=== PATIENT | female | born 1970 | race Caucasian/White ===

== ENCOUNTER 2017-02-08 05:52 | Emergency (ER) | payer MEDICARE, BC ==
[2017-02-08] MEDS ORDERED: LORazepam 2 MG/ML Syringe IVPUSH ONE ×2 (06:03→06:28)
[2017-02-08] MEDS ORDERED: LORazepam 2 MG/ML Syringe ONE (06:05)
--- NOTE | 2017-02-08 06:12 | EDM.PDOC ---
{null, <Jamie Hartman - Last Filed: 02/08/17 06:40> ED HPI GENERAL MEDICAL PROBLEM - General Stated Complaint: COMING IN OWN VEHICLE, POSSIBLE STROKE? Time Seen by Provider: 02/08/17 06:08 Source of Information: Reports: Patient History Limitations: Reports: No Limitations - History of Present Illness INITIAL COMMENTS - FREE TEXT/NARRATIVE: pt arrived screaming hysterically alleging having a stroke because left side. also been having abd' pain past 2 months and been for multiple eval' had neg CAT few weeks ago. but Pt demanded a repeat CAT despite warning over excessive radiation. Pt got angry over my excessive questioning and requesting her to try to calm down so we can obtain a accurate HPI, also I informed her that since she is talking and moving a stroke is unlikely at this point Pt got more angry and demanded another doctor. Apparently I contradicted her claim. states wants something for pain now and continue to scream. also states abd' pain feels like stabbing pain and tonight gave herself enema and not better. states been told she has a cyste and waiting consult. Lower Abdominal Pain Score (Numeric/FACES): 10 - Related Data Allergies Allergy/AdvReac Type Severity Reaction Status Date / Time amoxicillin [Amoxicillin] Allergy Itching Verified 02/08/17 06:28 ampicillin Allergy Itching Verified 02/08/17 06:28 cephalexin [Cephalexin] Allergy Rash Verified 02/08/17 06:28 morphine Allergy Nausea Verified 02/08/17 06:28 morphine sulfate Allergy Itching Verified 02/08/17 06:28 [From Raina] Penicillins Allergy Itching Verified 02/08/17 06:28 Home Meds: Home Meds FLUoxetine HCl [Fluoxetine HCl] 40 mg PO DAILY 07/06/15 [History] buPROPion HCl [Bupropion Xl] 150 mg PO DAILY 07/06/15 [History] oxyCODONE HCl [Oxycontin] 80 mg PO BID 07/06/15 [History] Docusate Sodium/Sennosides [Senna Plus] 1 tab PO ASDIRECTED PRN 02/08/17 [ History] Past Medical History HEENT History: Reports: None Cardiovascular History: Reports: None Respiratory History: Reports: None Gastrointestinal History: Reports: None Other Genitourinary History: has a bladder sling, vaginal mesh Neurological History: Reports: None Psychiatric History: Reports: None Endocrine/Metabolic History: Reports: None Hematologic History: Reports: None Immunologic History: Reports: None Oncologic (Cancer) History: Reports: None Dermatologic History: Reports: None - Past Surgical History HEENT Surgical History: Reports: None Cardiovascular Surgical History: Reports: None Endocrine Surgical History: Reports: None Neurological Surgical History: Reports: None Social & Family History - Tobacco Use Smoking Status *Q: Light Tobacco Smoker Years of Tobacco use: 20 Packs/Tins Daily: 0.5 Second Hand Smoke Exposure: No - Recreational Drug Use Recreational Drug Use: No ED ROS GENERAL - Review of Systems Review Of Systems: ROS reveals no pertinent complaints other than HPI. ED EXAM, GENERAL - Physical Exam Exam: See Below Exam Limited By: No Limitations General Appearance: Alert, WD/WN, Anxious, Other (screaming yelling) Ears: Hearing Grossly Normal Throat/Mouth: Normal Voice, No Airway Compromise Head: Atraumatic Neck: Non-Tender, Full Range of Motion Respiratory/Chest: No Respiratory Distress Cardiovascular: Regular Rate, Rhythm GI/Abdominal: Tender, Other (periumb). No: Distended, Guarding, Rigid, Rebound Neurological: Alert, Oriented, Normal Cognition, Normal Gait, No Motor/Sensory Deficits Psychiatric: Tearful Skin Exam: Warm, Dry Lymphatic: No Adenopathy Course - Vital Signs Last Recorded V/S: Last Vital Signs Temp 36.2 C 02/08/17 06:10 Pulse 100 02/08/17 06:10 Resp 20 02/08/17 06:10 BP 132/98 H 02/08/17 06:10 Pulse Ox 100 02/08/17 06:10 - Orders/Labs/Meds Orders: Active Orders 24 hr Category Date Time Status Enema [RC] ASDIRECTED Care 02/08/17 07:50 Active Labs: Laboratory Tests 02/08/17 02/08/17 02/08/17 Range/Units 06:05 06:05 07:15 WBC 6.7 (5.0-10.0) 10^3/uL RBC 3.63 L (4.2-5.4) 10^6/uL Hgb 11.0 L (12.0-16.0) g/dL Hct 33.6 L (37.0-47.0) % MCV 92.6 (80-100) fL MCH 30.3 (27.0-34.0) pg MCHC 32.7 L (33.0-35.0) g/dL Plt Count 223 (150-450) 10^3/uL Neut % (Auto) 51.0 (42.2-75.2) % Lymph % (Auto) 36.2 (20.5-50.1) % Jerome % (Auto) 8.5 H (2-8) % Eos % (Auto) 3.9 H (1.0-3.0) % Baso % (Auto) 0.4 (0.0-1.0) % Sodium 137 (135-145) mmol/L Potassium 3.5 L (3.6-5.0) mmol/L Chloride 101 (101-111) mmol/L Carbon Dioxide 26.0 (21.0-31.0) mmol/L Anion Gap 13.5 BUN 7 (7-18) mg/dL Creatinine 1.0 (0.6-1.3) mg/dL Est Cr Clr Drug Dosing 58.77 mL/min Estimated GFR (MDRD) 60 BUN/Creatinine Ratio 7.00 Glucose 88 (74-105) mg/dL Calcium 9.2 (8.4-10.2) mg/dl Total Bilirubin 0.5 (0.2-1.0) mg/dL AST 34 (10-42) IU/L ALT 20 (10-60) IU/L Alkaline Phosphatase 47 (42-121) IU/L Total Protein 6.4 L (6.7-8.2) g/dl Albumin 4.3 (3.2-5.5) g/dl Globulin 2.1 Albumin/Globulin Ratio 2.05 Urine Color (YELLOW) Urine Appearance (CLEAR) Urine pH (5.0-9.0) Ur Specific [place] (1.005-1.030) Urine Protein (NEGATIVE) Urine Glucose (UA) (NEGATIVE) Urine Ketones (NEGATIVE) Urine Occult Blood (NEGATIVE) Urine Nitrite (NEGATIVE) Urine Bilirubin (NEGATIVE) Urine Urobilinogen (0.2-1.0) mg/dL Ur Leukocyte Esterase (NEGATIVE) Urine Opiates Screen Negative (NEGATIVE) Ur Oxycodone Screen Positive H (NEGATIVE) Urine Methadone Screen Negative (NEGATIVE) Ur Barbiturates Screen Negative (NEGATIVE) U Tricyclic Antidepress Negative (NEGATIVE) Ur Phencyclidine Scrn Negative (NEGATIVE) Ur Amphetamine Screen Negative (NEGATIVE) U Methamphetamines Scrn Negative (NEGATIVE) Urine MDMA Screen Negative (NEGATIVE) U Benzodiazepines Scrn Negative (NEGATIVE) Urine Cocaine Screen Negative (NEGATIVE) U Marijuana (THC) Screen Negative (NEGATIVE) 02/08/17 Range/Units 07:15 WBC (5.0-10.0) 10^3/uL RBC (4.2-5.4) 10^6/uL Hgb (12.0-16.0) g/dL Hct (37.0-47.0) % MCV (80-100) fL MCH (27.0-34.0) pg MCHC (33.0-35.0) g/dL Plt Count (150-450) 10^3/uL Neut % (Auto) (42.2-75.2) % Lymph % (Auto) (20.5-50.1) % Jerome % (Auto) (2-8) % Eos % (Auto) (1.0-3.0) % Baso % (Auto) (0.0-1.0) % Sodium (135-145) mmol/L Potassium (3.6-5.0) mmol/L Chloride (101-111) mmol/L Carbon Dioxide (21.0-31.0) mmol/L Anion Gap BUN (7-18) mg/dL Creatinine (0.6-1.3) mg/dL Est Cr Clr Drug Dosing mL/min Estimated GFR (MDRD) BUN/Creatinine Ratio Glucose (74-105) mg/dL Calcium (8.4-10.2) mg/dl Total Bilirubin (0.2-1.0) mg/dL AST (10-42) IU/L ALT (10-60) IU/L Alkaline Phosphatase (42-121) IU/L Total Protein (6.7-8.2) g/dl Albumin (3.2-5.5) g/dl Globulin Albumin/Globulin Ratio Urine Color Yellow (YELLOW) Urine Appearance Clear (CLEAR) Urine pH 7.5 (5.0-9.0) Ur Specific Anderson 1.010 (1.005-1.030) Urine Protein Negative (NEGATIVE) Urine Glucose (UA) Negative (NEGATIVE) Urine Ketones Negative (NEGATIVE) Urine Occult Blood Moderate H (NEGATIVE) Urine Nitrite Negative (NEGATIVE) Urine Bilirubin Negative (NEGATIVE) Urine Urobilinogen 0.2 (0.2-1.0) mg/dL Ur Leukocyte Esterase Negative (NEGATIVE) Urine Opiates Screen (NEGATIVE) Ur Oxycodone Screen (NEGATIVE) Urine Methadone Screen (NEGATIVE) Ur Barbiturates Screen (NEGATIVE) U Tricyclic Antidepress (NEGATIVE) Ur Phencyclidine Scrn (NEGATIVE) Ur Amphetamine Screen (NEGATIVE) U Methamphetamines Scrn (NEGATIVE) Urine MDMA Screen (NEGATIVE) U Benzodiazepines Scrn (NEGATIVE) Urine Cocaine Screen (NEGATIVE) U Marijuana (THC) Screen (NEGATIVE) Meds: Medications Discontinued Medications Generic Name Dose Route Start Last Admin Trade Name Freq PRN Reason Stop Dose Admin Hydromorphone HCl 1 mg 02/08/17 06:16 02/08/17 06:25 Dilaudid IVPUSH 02/08/17 06:17 1 mg ONETIME ONE Administration Lorazepam 1 mg 02/08/17 06:03 02/08/17 06:11 Ativan IVPUSH 02/08/17 06:04 1 mg ONETIME ONE Administration Lorazepam Confirm 02/08/17 06:05 02/08/17 06:38 Ativan Administered 02/08/17 06:06 Not Given Dose 2 mg .ROUTE .STK-MED ONE Lorazepam 1 mg 02/08/17 06:28 02/08/17 06:15 Ativan IVPUSH 02/08/17 06:29 1 mg ONETIME ONE Administration Ondansetron HCl 4 mg 02/08/17 06:16 02/08/17 06:21 Zofran IV 02/08/17 06:17 4 mg ONETIME ONE Administration Departure - Departure Disposition: Home, Self-Care 01 Clinical Impression: Constipation Qualifiers: Constipation type: unspecified constipation type Qualified Code(s): K59.00 - Constipation, unspecified - Discharge Information Instructions: Constipation, Adult, [id number] Care Plan Goals: The patient was advised of the examination, head CT, abdominal CT and lab results during the visit. The patient was encouraged to continue with her current medications as prescribed. The patient should follow-up with her primary care facility or her specialist for continued evaluation and further management. If the patient has any additional symptoms or concerns, the patient should visit her primary care facility or return to the emergency department. - My Orders Last 24 Hours: My Active Orders 02/08/17 07:50 Enema [RC] ASDIRECTED - Assessment/Plan Last 24 Hours: My Active Orders 02/08/17 07:50 Enema [RC] ASDIRECTED <Alvino Connolly - Last Filed: 02/08/17 11:08> Course - Re-Assessments/Exams Free Text/Narrative Re-Assessment/Exam: 02/08/17 07:28 Patient care was taken over at shift change. Head and Abdominal CT results were reviewed. A urine sample was collected and sent to lab. Departure - Departure Time of Disposition: 11:05 Condition: fair - My Orders Last 24 Hours: My Active Orders 02/08/17 07:50 Enema [RC] ASDIRECTED - Assessment/Plan Last 24 Hours: My Active Orders 02/08/17 07:50 Enema [RC] ASDIRECTED }
[2017-02-08] MEDS ORDERED: HYDROmorphone 1 MG/ML Syringe IVPUSH ONE (06:16)
[2017-02-08] MEDS ORDERED: Ondansetron 4 MG/2 ML SDV IV ONE (06:16)
--- NOTE | 2017-02-08 09:26 | CT ---
{null, Addendum report: (08 Feb 2017, 0930 hours) CT exam 08 Feb 2017 (0630 hours) reviewed. No evidence of mechanical large or small bowel obstructi on. No pelvic or abdominal mass lesion. No signs of mesenteric or retroperitoneal lymphadenopathy. N o ascites or free intraperitoneal air. Surgically absent uterus. Contrast presumably from previous CT exam 23 December 2016 fills normal-appearing appendix RLQ. }
[2017-02-08 11:26] VITALS: BP 128/93
== END 2017-02-08 11:27 | disposition home or self-care (01) ==
LOC: DL.ED 05:52 → DL.MS 08:10 → DL.ED 11:27
DX: K59.00 Constipation, unspecified (principal); F41.9 Anxiety disorder, unspecified; F17.210 Nicotine dependence, cigarettes, uncomplicated; Z86.73 Personal history of transient ischemic attack (TIA), and cerebral infarction without residual deficits; Z88.1 Allergy status to other antibiotic agents; Z88.0 Allergy status to penicillin; Z79.899 Other long term (current) drug therapy; Z88.5 Allergy status to narcotic agent
CPT/HCPCS: 36415; 70450; 74176; 80053; 80305; 81003; 85025; 96374; 96375; 99284; 99285; J1170; J2060; J2405

== ENCOUNTER 2020-02-10 03:11 | Emergency (ER) | payer MEDICARE, BC ==
[2020-02-10 03:17] VITALS: BP 155/88; PULSE 72
--- NOTE | 2020-02-10 03:37 | EDM.PDOC ---
ED HPI GENERAL MEDICAL PROBLEM - General Chief Complaint: Chest Pain Stated Complaint: CHEST PAIN Time Seen by Provider: 02/10/20 03:33 Source of Information: Reports: Patient History Limitations: Reports: No Limitations - History of Present Illness INITIAL COMMENTS - FREE TEXT/NARRATIVE: onset left anterior sharp pain on-off since Wednesday. was doing laundry at the time then again tues while watching TV, then tonight while asleep. denies trauma , denies prior h/o. denies URI Sx. Left Chest Pain Score (Numeric/FACES): 2 - Related Data Allergies Allergy/AdvReac Type Severity Reaction Status Date / Time amoxicillin [Amoxicillin] Allergy Itching Verified 02/08/17 06:28 ampicillin Allergy Itching Verified 02/08/17 06:28 cephalexin [Cephalexin] Allergy Rash Verified 02/08/17 06:28 morphine Allergy Nausea Verified 02/08/17 06:28 morphine sulfate Allergy Itching Verified 02/08/17 06:28 [From Raina] Penicillins Allergy Itching Verified 02/08/17 06:28 Home Meds: Home Meds FLUoxetine HCl [Fluoxetine HCl] 40 mg PO DAILY 07/06/15 [History] oxyCODONE HCl [Oxycontin] 80 mg PO BID 07/06/15 [History] Docusate Sodium/Sennosides [Senna Plus] 1 tab PO ASDIRECTED PRN 02/08/17 [ History] Gabapentin [Neurontin] 300 mg PO TID 07/06/18 [History] Past Medical History HEENT History: Reports: None Cardiovascular History: Reports: None Respiratory History: Reports: None Gastrointestinal History: Reports: Chronic Constipation Genitourinary History: Reports: Urinary Incontinence Other Genitourinary History: has a bladder sling, vaginal mesh COUNTER ATTENDANT History: Reports: Polycystic Ovaries Musculoskeletal History: Reports: Back Pain, Chronic Neurological History: Reports: None Other Neuro History: pt. states she has been diagnosed with paranoid delusions Psychiatric History: Reports: Anxiety, Depression, Panic Attack, Other (See Below) Other Psychiatric History: eating disorder Endocrine/Metabolic History: Reports: None Hematologic History: Reports: None Immunologic History: Reports: None Oncologic (Cancer) History: Reports: None Dermatologic History: Reports: None - Infectious Disease History Infectious Disease History: Reports: Chicken Pox - Past Surgical History HEENT Surgical History: Reports: None Cardiovascular Surgical History: Reports: None GI Surgical History: Reports: Cholecystectomy, Lysis of Adhesions, Polypectomy, Other (See Below) Other GI Surgeries/Procedures: rectocele 04/2006 Female Surgical History: Reports: Hysterectomy, LEEP, Oophorectomy Endocrine Surgical History: Reports: None Social & Family History - Family History Family Medical History: Unobtainable - Tobacco Use Smoking Status *Q: Current Every Day Smoker Years of Tobacco use: 30 Packs/Tins Daily: 1 Second Hand Smoke Exposure: Yes - Caffeine Use Caffeine Use: Reports: Soda Caffeine Use Comment: states drinks 6-10 cans of Diet Mt Dew daily - Recreational Drug Use Recreational Drug Use: No ED ROS GENERAL - Review of Systems Review Of Systems: Comprehensive ROS is negative, except as noted in HPI. ED EXAM, GENERAL - Physical Exam Exam: See Below Exam Limited By: No Limitations General Appearance: Alert, WD/WN, Mild Distress, Other (UPSET) Ears: Hearing Grossly Normal Throat/Mouth: Normal Voice, No Airway Compromise Head: Atraumatic Neck: Non-Tender, Full Range of Motion Respiratory/Chest: No Respiratory Distress Cardiovascular: Regular Rate, Rhythm GI/Abdominal: Soft, Non-Tender Neurological: Alert, Oriented, Normal Cognition, Normal Gait, No Motor/Sensory Deficits Psychiatric: Flat Affect Skin Exam: Warm, Dry, Normal Color Lymphatic: No Adenopathy Course - Vital Signs Last Recorded V/S: Last Vital Signs Temp 36.6 C 02/10/20 03:13 Pulse 72 02/10/20 03:13 Resp 18 02/10/20 03:13 BP 155/88 H 02/10/20 03:13 Pulse Ox 100 02/10/20 03:13 - Orders/Labs/Meds Orders: Active Orders 24 hr Category Date Time Status EKG Documentation Completion [RC] STAT Care 02/10/20 03:21 Active LACTIC ACID [CHEM] Stat Lab 02/10/20 03:56 Received Labs: Laboratory Tests 02/10/20 02/10/20 02/10/20 Range/Units 03:26 03:26 03:26 WBC 4.5 L (5.0-10.0) 10^3/uL RBC 3.87 L (4.2-5.4) 10^6/uL Hgb 11.9 L (12.0-16.0) g/dL Hct 35.9 L (37.0-47.0) % MCV 92.8 (80-100) fL MCH 30.7 (27.0-34.0) pg MCHC 33.1 (33.0-35.0) g/dL Plt Count 182 (150-450) 10^3/uL Neut % (Auto) 51.1 (42.2-75.2) % Lymph % (Auto) 39.7 (20.5-50.1) % [place] % (Auto) 6.7 (2-8) % Eos % (Auto) 1.8 (1.0-3.0) % Baso % (Auto) 0.7 (0.0-1.0) % D-Dimer, Quantitative < 100 (0-400) ng/mL Sodium 137 (136-145) mmol/L Potassium 3.6 (3.5-5.1) mmol/L Chloride 100 (98-107) mmol/L Carbon Dioxide 29 (21-32) mmol/L Anion Gap 11.6 (7-13) mEq/L BUN 13 (7-18) mg/dL Creatinine 1.24 H (0.55-1.02) mg/dL Est Cr Clr Drug Dosing 43.88 mL/min Estimated GFR (MDRD) 46 BUN/Creatinine Ratio 10.5 (No establ ref range) Glucose 111 H (74-99) mg/dL Calcium 8.7 (8.5-10.1) mg/dL Total Bilirubin 0.9 (0.2-1.0) mg/dL AST 20 (15-37) U/L ALT 20 (14-59) U/L Alkaline Phosphatase 59 (46-116) U/L Troponin I < 0.017 (0.000-0.056) ng/mL Total Protein 6.2 L (6.4-8.2) g/dL Albumin 3.8 (3.4-5.0) g/dL Globulin 2.4 Albumin/Globulin Ratio 1.6 - Re-Assessments/Exams Free Text/Narrative Re-Assessment/Exam: 02/10/20 04:33 results discussed with pt who is aware of her low blood protein. Departure - Departure Time of Disposition: 04:34 Disposition: Home, Self-Care 01 Condition: Good Clinical Impression: Anterior chest wall pain Instructions: Chest Wall Pain, [id number] Forms: ED Department Discharge Additional Instructions: 1) rest 2) see family doctor for STRESS TEST, ECHOCARDIOGRAM, HOLTER MONITOR 3) recheck if there is any change or concern 4) try tylenol or motrin as needed for discomfort Sepsis Event Note - Evaluation Sepsis Screening Result: No Definite Risk - Focused Exam Vital Signs: Vital Signs Temp Pulse Resp BP Pulse Ox 02/10/20 03:13 36.6 C 72 18 155/88 H 100 Date Exam was Performed: 02/10/20 Time Exam was Performed: 04:33 - My Orders Last 24 Hours: My Active Orders 02/10/20 03:21 EKG Documentation Completion [RC] STAT 02/10/20 03:56 LACTIC ACID [CHEM] Stat - Assessment/Plan Last 24 Hours: My Active Orders 02/10/20 03:21 EKG Documentation Completion [RC] STAT 02/10/20 03:56 LACTIC ACID [CHEM] Stat
[2020-02-10 04:07] LABS: ANION GAP 11.6 mEq/L (7-13); CHLORIDE,CL 100 mmol/L (98-107); SODIUM,NA 137 mmol/L (136-145)
== END 2020-02-10 04:44 | disposition home or self-care (01) ==
LOC: DL.ED 03:11
DX: R07.89 Other chest pain (principal); F41.9 Anxiety disorder, unspecified; F32.9 Major depressive disorder, single episode, unspecified; F17.210 Nicotine dependence, cigarettes, uncomplicated; Z88.0 Allergy status to penicillin; Z88.1 Allergy status to other antibiotic agents; Z88.5 Allergy status to narcotic agent; Z79.899 Other long term (current) drug therapy
CPT/HCPCS: 36415; 80053; 83605; 84484; 85025; 85379; 93005; 99284; 99285-25

== ENCOUNTER 2023-12-26 18:00 | Emergency (ER) | payer MEDICARE, BC ==
[2023-12-26 18:29] VITALS: BP 145/91; PULSE 106
[2023-12-26] MEDS: Sodium Chloride 0.9% 10 ML Syringe FLUSH PRN (18:51)
[2023-12-26] MEDS: Iopamidol 612 MG/ML 100 ML Bottle IVPUSH ONE (18:57)
[2023-12-26 19:01] LABS: BASOPHILS PERCENT AUTO 0.4 % (0.0-1.0); EOSINOPHILS PERCENT AUTO 1.2 % (1.0-3.0); HEMATOCRIT 36.3 % (37.0-47.0); LYMPHOCYTES PERCENT AUTO 29.6 % (20.5-50.1); MEAN CORPUSCULAR HEMOGLOBIN 31.1 pg (27.0-34.0); MEAN CORPUSCULAR HGB CONC 33.1 g/dL (33.0-35.0); MONOCYTES PERCENT AUTO 7.1 % (2-8); NEUTROPHILS PERCENT AUTO 61.7 % (42.2-75.2); PLATELET COUNT,PLT 250 10^3/uL (150-450); RED BLOOD CELL COUNT 3.86 10^6/uL (4.2-5.4); WHITE BLOOD CELL COUNT,WBC 7.7 10^3/uL (5.0-10.0)
[2023-12-26 19:05] LABS: APPEARANCE,URINE CLEAR (CLEAR); BILIRUBIN,URINE NEGATIVE (NEGATIVE); COLOR,URINE YELLOW (YELLOW); GLUCOSE,URINE NEGATIVE (NEGATIVE); KETONES,URINE NEGATIVE (NEGATIVE); LEUKOCYTE ESTERASE,URINE NEGATIVE (NEGATIVE); NITRITE,URINE NEGATIVE (NEGATIVE); OCCULT BLOOD,URINE TRACE-INTACT (NEGATIVE); PH,URINE 6.5 (5.0-9.0); PROTEIN,URINE NEGATIVE (NEGATIVE); UROBILINOGEN,URINE 0.2 mg/dL (0.2-1.0)
[2023-12-26 19:06] LABS: A/G RATIO 1.6; ALBUMIN 4.3 g/dL (3.4-5.0); ANION GAP 11.6 mEq/L (7-13); BILIRUBIN TOTAL 0.6 mg/dL (0.2-1.0); CALCIUM 9.2 mg/dL (8.5-10.1); EST CRCL DRUG DOSING (CG) 52.05 mL/min; MAGNESIUM 1.8 mg/dL (1.8-2.4); POTASSIUM,K 3.6 mmol/L (3.5-5.1)
[2023-12-26 19:19] LABS: BACTERIA,URINE RARE /HPF (0-FEW/HPF); EPITHELIAL CELLS,URINE RARE /HPF (NOT SEEN); RBC,URINE 0-5 /HPF (0-5); WBC,URINE NOT SEEN /HPF (0-5/HPF)
== END 2023-12-26 20:59 | disposition home or self-care (01) ==
LOC: DL.ED 18:00
DX: K59.09 Other constipation (principal); T40.605A Adverse effect of unspecified narcotics, initial encounter; J44.9 Chronic obstructive pulmonary disease, unspecified; Z86.16 Personal history of COVID-19; Z79.899 Other long term (current) drug therapy; Z88.0 Allergy status to penicillin; Z88.1 Allergy status to other antibiotic agents; Z88.5 Allergy status to narcotic agent
CPT/HCPCS: 36415; 74177; 80053; 81001; 83690; 83735; 85025; 93010; 99284; Q9967; J3490

== ENCOUNTER 2024-01-14 17:14 | Observation (INO) | payer MEDICARE, BC ==
[2024-01-14] MEDS ORDERED: Metoclopramide 10 MG/2 ML SDV IVPUSH PRN (17:56)
[2024-01-14] MEDS: Dexamethasone 4 MG/ML SDV IVPUSH ONE (18:45)
[2024-01-14] MEDS: Lactated Ringers 1,000 ML IV SCH (18:45)
[2024-01-14] MEDS: metroNIDAZOLE/Normal Saline 500 MG in Premix Bag 1 BAG IV SCH (18:46)
[2024-01-14 18:52] LABS: BASOPHILS PERCENT AUTO 0.3 % (0.0-1.0); EOSINOPHILS PERCENT AUTO 2.3 % (1.0-3.0); HEMATOCRIT 37.4 % (37.0-47.0); HEMOGLOBIN 12.3 g/dL (12.0-16.0); LYMPHOCYTES PERCENT AUTO 40.8 % (20.5-50.1); MEAN CORPUSCULAR HGB CONC 32.9 g/dL (33.0-35.0); MEAN CORPUSCULAR VOLUME 94.2 fL (80-100); NEUTROPHILS PERCENT AUTO 49.6 % (42.2-75.2); PLATELET COUNT,PLT 297 10^3/uL (150-450); RED BLOOD CELL COUNT 3.97 10^6/uL (4.2-5.4); WHITE BLOOD CELL COUNT,WBC 6.2 10^3/uL (5.0-10.0)
[2024-01-14] MEDS: Glycerin Adult 2 GM Supp RECTAL SCH (19:05)
[2024-01-14 19:11] LABS: A/G RATIO 1.5; ALANINE AMINOTRANSFERASE,ALT 31 U/L (14-59); ALBUMIN 4.4 g/dL (3.4-5.0); ALKALINE PHOSPHATASE 63 U/L (46-116); ANION GAP 12.3 mEq/L (7-13); ASPARTATE AMNIOTRANSFERASE,AST 24 U/L (15-37); BILIRUBIN TOTAL 0.4 mg/dL (0.2-1.0); BLOOD UREA NITROGEN,BUN 8 mg/dL (7-18); BUN/CREATININE RATIO 8.5 (No establ ref range); C-REACTIVE PROTEIN < 0.50 ng/dL (<=0.50); CARBON DIOXIDE,CO2 29 mmol/L (21-32); CHLORIDE,CL 102 mmol/L (98-107); CREATININE 0.94 mg/dL (0.55-1.02); EST CRCL DRUG DOSING (CG) 54.44 mL/min; ESTIMATED GFR 73 mL/min (>=60); GLUCOSE RANDOM 91 mg/dL (70-99); POTASSIUM,K 3.3 mmol/L (3.5-5.1); PROTEIN TOTAL,TP 7.4 g/dL (6.4-8.2); SODIUM,NA 140 mmol/L (136-145)
[2024-01-14] MEDS: Ciprofloxacin in D5W 400 MG in Premix Bag 1 BAG IV SCH (20:17)
[2024-01-14] MEDS: Folic Acid 1 MG Tab PO SCH (20:44)
[2024-01-14] MEDS: Gabapentin 300 MG Cap PO SCH (20:44)
[2024-01-14] MEDS: oxyCODONE ER 20 MG TAB.ER PO SCH (20:45)
[2024-01-14] MEDS ORDERED: Gabapentin 300 MG Cap PO SCH (21:00)
[2024-01-14] MEDS ORDERED: oxyCODONE ER 20 MG TAB.ER PO SCH (21:00)
[2024-01-14] MEDS: Nicotine 21 MG/24 Hr Patch TRDERM SCH (23:13)
[2024-01-15] MEDS: Fluconazole 100 MG Tab PO SCH (08:27)
[2024-01-15] MEDS: Lidocaine 5% 700 MG Patch TOP SCH (08:31)
[2024-01-15] MEDS ORDERED: Acetaminophen 325 MG Tab PO PRN (10:00)
[2024-01-15 10:38] LABS: ANION GAP 9.8 mEq/L (7-13); CALCIUM 8.9 mg/dL (8.5-10.1); CREATININE 0.85 mg/dL (0.55-1.02); EST CRCL DRUG DOSING (CG) 60.21 mL/min; POTASSIUM,K 3.8 mmol/L (3.5-5.1)
[2024-01-15 12:32] VITALS: BP 135/88; PULSE 89
[2024-01-15] MEDS ORDERED: Check Patch TRDERM SCH (21:00)
== END 2024-01-15 13:45 | disposition home or self-care (01) ==
LOC: DL.MS 18:13
PROVIDERS: ADMIT Student in an Organized Health Care Education/Training Program; ATTEND Student in an Organized Health Care Education/Training Program
DX: J18.9 Pneumonia, unspecified organism (principal); K59.03 Drug induced constipation; G89.4 Chronic pain syndrome; T40.2X5A Adverse effect of other opioids, initial encounter; K63.89 Other specified diseases of intestine; K52.9 Noninfective gastroenteritis and colitis, unspecified; M54.2 Cervicalgia; M54.50 Low back pain, unspecified; R05.9 Cough, unspecified; B37.31 Acute candidiasis of vulva and vagina; F17.210 Nicotine dependence, cigarettes, uncomplicated; F32.A Depression, unspecified; Z88.0 Allergy status to penicillin; Z88.5 Allergy status to narcotic agent; Z88.8 Allergy status to other drugs, medicaments and biological substances; Z79.899 Other long term (current) drug therapy
CPT/HCPCS: 36415; 80048; 80053; 85025; 86140; 96361; 96365; 96366; 96367; 96375; A9270-GY; G0378; J0744; J1100; J1836; J7120